=== PATIENT | female | born 1930 | race Caucasian/White ===

== ENCOUNTER → 2016-08-16 | Outpatient (CLI) | payer MEDICARE, OTHER, MEDICAID ==
--- NOTE | 2016-08-16 16:10 | CR ---
EXAMINATION: Right femur HISTORY: Fracture COMPARISON: 05/17/2016 TECHNIQUE: 2 views FINDINGS/IMPRESSION: Right intramedullary yakov is again noted traversing a nearly well-healed subtroc hanteric fracture. The remaining osseous structures and joint spaces appear preserved. Bone minerali zation appears mildly osteopenic. No knee joint effusion.
== END ==
LOC: MW.CHORTHO 08:05
PROVIDERS: ATTEND Orthopaedic Surgery
DX: S72.21XA Displaced subtrochanteric fracture of right femur, initial encounter for closed fracture (principal); S72.21XD Displaced subtrochanteric fracture of right femur, subsequent encounter for closed fracture with routine healing; Z98.890 Other specified postprocedural states
CPT/HCPCS: 73552-26-LT; 73552-RT; G0463

== ENCOUNTER 2018-05-14 13:51 | Emergency (ER) | payer MEDICARE, OTHER ==
[2018-05-14 14:31] VITALS: BP 188/80
--- NOTE | 2018-05-14 15:07 | CR ---
EXAMINATION: Portable chest radiograph. HISTORY: Fall. FINDINGS: The trachea is midline. The cardiomediastinal silhouette is within normal limits. Trace bibasilar atelectasis and/or infiltrate. Chronic interstitial prominence. The aorta is tortuous. Osseous structures appear osteopenic. IMPRESSION: 1. Minimal bibasilar atelectasis and/or infiltrate. 2. Chronic prominence.
--- NOTE | 2018-05-14 15:11 | CR ---
EXAMINATION: Right shoulder HISTORY: Pain COMPARISON: None TECHNIQUE: 3 views FINDINGS/IMPRESSION: Bone mineralization is osteopenic. Increased angulation of the humeral neck without a definite fracture, possibly secondary to an old injury. Mild acromioclavicular osteoarthritic changes. Possible nondisplaced right eighth rib fracture.
--- NOTE | 2018-05-14 15:35 | CT ---
EXAMINATION: CT cervical spine HISTORY: Fall COMPARISON: None TECHNIQUE: Axial CT imaging obtained of the cervical spine without contrast. Coronal and sagittal reconstructions obtained. FINDINGS: There is mild relative retrolisthesis of C1 on C2 with an old odontoid fracture. The dens is fused with the anterior arch of C1. There is minimal anterolisthesis of C3 on C4. There is generalized osteopenia. Mild osteophyte disc complexes and uncovertebral hypertrophy noted throughout the cervical spine. No definite acute osseous abnormality or fracture. There are moderate compression deformities within the upper thoracic spine most prominent at T3 and T4. Scarring is noted within the lung apices mild to moderate pulmonary emphysema. Carotid artery calcifications are also noted. IMPRESSION: 1. No acute osseous abnormality identified. 2. Old type II odontoid fracture. 3. Multilevel degenerative changes noted within the cervical spine. 4. Scarring within the lung apices with [id number] pulmonary emphysema. 5. Moderate compression deformities within the upper thoracic spine.
--- NOTE | 2018-05-14 15:59 | CT ---
EXAMINATION: Non contrast CT head. Coronal and sagittal reformats. HISTORY: Pain FINDINGS: No evidence of intra or extra axial hemorrhage, mass, midline shift, hydrocephalus or edema. There is moderate generalized atrophy. Moderate periventricular and subcortical white matter hypodensities also noted. Tiny old lacunar infarct within the right periventricular region. No hypoattenuation changes in the major vascular territories to suggest acute infarct. No abnormal intracranial calcifications are detected. No evidence of substantial vascular calcifications. Paranasal sinuses and mastoid air cells are well aerated without substantial findings. Pituitary fossa appears unremarkable. Orbits and globes are symmetric. Calvarium is intact. Osseous structures are osteopenic. IMPRESSION: 1. No acute intracranial findings. 2. Prominent generalized atrophy and small vessel ischemic changes.
--- NOTE | 2018-05-14 16:04 | EDM.PDOC ---
ED HPI GENERAL MEDICAL PROBLEM - General Chief Complaint: Upper Extremity Injury/Pain Stated Complaint: SHOULDER INJURY Time Seen by Provider: 05/14/18 16:02 Source of Information: Reports: Patient - History of Present Illness INITIAL COMMENTS - FREE TEXT/NARRATIVE: HISTORY AND PHYSICAL: History of present illness: []Patient resides at [facility] States she is have right shoulder pain over the last couple of weeks however she fell over her wheelchair today and has increasing shoulder pain as well as some pain on her side she denies head injury or loss of consciousness No fever nausea vomiting chills sweats Review of systems: As per history of present illness and below otherwise all systems reviewed and negative. Past medical history: As per history of present illness and as reviewed below otherwise noncontributory. Surgical history: As per history of present illness and as reviewed below otherwise noncontributory. Social history: No reported history of drug or alcohol abuse. Family history: As per history of present illness and as reviewed below otherwise noncontributory. Physical exam: HEENT: Atraumatic, normocephalic, pupils reactive, negative for conjunctival pallor or scleral icterus, mucous membranes moist, throat clear, neck supple, nontender, trachea midline. Lungs: Clear to auscultation, breath sounds equal bilaterally, chest nontender. Heart: S1S2, regular, negative for clicks, rubs, or JVD. Abdomen: Soft, nondistended, nontender. Negative for masses or hepatosplenomegaly. Negative for costovertebral tenderness. Pelvis: Stable nontender. Genitourinary: Deferred. Rectal: Deferred. Extremities: Atraumatic, negative for cords or calf pain. Neurovascular unremarkable. Neuro: Awake, alert, oriented. Cranial nerves II through XII unremarkable. Cerebellum unremarkable. Motor and sensory unremarkable throughout. Exam nonfocal. Diagnostics: [] right shoulder [address] no contrast L-spine no contrast Therapeutics: [] tramadol Impression: [] muscle spasm right shoulder girdle A throat fracture on the right nondisplaced closed Definitive disposition and diagnosis as appropriate pending reevaluation and review of above. Right Shoulder Pain Score (Numeric/FACES): 8 - Related Data Allergies Allergy/AdvReac Type Severity Reaction Status Date / Time No Known Allergies Allergy Verified 11/03/15 14:22 Home Meds: Home Meds Acetaminophen [Tylenol Extra Strength] 500 mg PO TID 05/14/18 [History] Acetaminophen/HYDROcodone [[place] 325-5 MG] 1 tab PO Q6H PRN 05/14/18 [History] Bisacodyl 10 mg RC DAILY PRN 05/14/18 [History] Calcitonin,[place],Synthetic [Calcitonin-[place]] 1 spray NASBOTH ASDIRECTED 05/14 [History] Calcium Carbonate/Vitamin D3 [Calcium 500-Vit D3 200 Caplet] 1 tab PO BID [History] Cholecalciferol (Vitamin D3) [Vitamin D3] 2,000 unit PO DAILY 05/14/18 [History] Docusate Sodium [Colace] 200 mg PO DAILY 05/14/18 [History] Loperamide HCl [Imodium A-D] 2 mg PO ASDIRECTED PRN 05/14/18 [History] Magnesium Hydroxide [Milk of Magnesia] 15 ml PO DAILY PRN 05/14/18 [History] Memantine [Namenda] 10 mg PO BID 05/14/18 [History] Multivitamin [Daily Multiple Vitamin] 1 each PO DAILY 05/14/18 [History] Omeprazole 20 mg PO DAILY 05/14/18 [History] Polyethylene Glycol 3350 [MiraLAX] 17 gm PO DAILY PRN 05/14/18 [History] guaiFENesin/Dextromethorphan [Tussin DM Clear] 10 ml PO Q4H PRN 05/14/18 [ History] Past Medical History 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: Reports: 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: Musculoskeletal History: Reports: Other (See Below) Other Musculoskeletal History: hx of neck and back fx's Psychiatric History: Reports: Dementia Immunologic History: Reports: None - Infectious Disease History Infectious Disease History: Reports: None Social & Family History - Family History Family Medical History: Unobtainable - Tobacco Use Smoking Status *Q: Never Smoker Second Hand Smoke Exposure: No - Caffeine Use Caffeine Use: Reports: Coffee - Recreational Drug Use Recreational Drug Use: No Review of Systems - Review of Systems Review Of Systems: See Below ED EXAM, GENERAL - Physical Exam Exam: See Below Course - Vital Signs Last Recorded V/S: Last Vital Signs Temp 97.6 F 05/14/18 14:27 Pulse 68 05/14/18 14:27 Resp 16 05/14/18 14:27 BP 188/80 H 05/14/18 14:27 Pulse Ox 95 05/14/18 14:27 Departure - Departure Time of Disposition: 16:03 Disposition: Home, Self-Care 01 Condition: Good Clinical Impression: Right shoulder injury, Muscle spasm, Rib fracture - Discharge Information Referrals: PCP,Unknown [Primary Care Provider] - Additional Instructions: The following information is given to patients seen in the emergency department who are being discharged to home. This information is to outline your options for follow-up care. We provide all patients seen in our emergency department with a follow-up referral. The need for follow-up, as well as the timing and circumstances, are variable depending upon the specifics of your emergency department visit. If you don't have a primary care physician on staff, we will provide you with a referral. We always advise you to contact your personal physician following an emergency department visit to inform them of the circumstance of the visit and for follow-up with them and/or the need for any referrals to a consulting specialist. The emergency department will also refer you to a specialist when appropriate. This referral assures that you have the opportunity for follow-up care with a specialist. All of these measure are taken in an effort to provide you with optimal care, which includes your follow-up. Under all circumstances we always encourage you to contact your private physician who remains a resource for coordinating your care. When calling for follow-up care, please make the office aware that this follow-up is from your recent emergency room visit. If for any reason you are refused follow-up, please contact the [facility] emergency department at and asked to speak to the emergency department charge nurse.
== END 2018-05-14 16:13 | disposition home or self-care (01) ==
LOC: MW.ED 13:51
DX: S22.31XA Fracture of one rib, right side, initial encounter for closed fracture (principal); S49.91XA Unspecified injury of right shoulder and upper arm, initial encounter; M62.838 Other muscle spasm; Z79.899 Other long term (current) drug therapy; W05.0XXA Fall from non-moving wheelchair, initial encounter
CPT/HCPCS: 70450; 70450-26; 71045; 71045-26; 72125; 72125-26; 73030-26-RT; 73030-RT; 99284; 99284-25

== ENCOUNTER 2018-10-09 11:49 | Emergency (ER) | payer MEDICARE, OTHER ==
--- NOTE | 2018-10-09 12:31 | EDM.PDOC ---
<Natalia Ventura - Last Filed: 10/09/18 12:20> ED HPI GENERAL MEDICAL PROBLEM - General Chief Complaint: Fever Stated Complaint: FEVER Time Seen by Provider: 10/09/18 11:56 - History of Present Illness INITIAL COMMENTS - FREE TEXT/NARRATIVE: History of present illness: 87-year-old female presents from the [facility] today for complaints of fever. She was seen on round either physician earlier this week due to respiratory cough and congestion. This today she's developed a fever of 103 201 and 99F after being provided 1 g of acetaminophen. She did experience emesis this weekend per nursing staff. She is pleasant, however a bit confused as to why she is here. She indicates she wasn't allowed to put her makeup on drink coffee and expects to go home, which in her reference is her actual home and not the half-way. Staff member is present and confirms the same. Presently denies any ill feelings, however is constantly clearing her throat and when asked if this is unusual states that her nerves from being in the hospital. She does have oxygen on at this time which is not routine in her daily care at the half-way She denies shortness of breath, nausea,vomiting, diarrhea, abdominal pain, headache, chills, or cough. However, patient is a poor historian. Review of systems: As per history of present illness and below otherwise all systems reviewed and negative. Past medical history: As per history of present illness and as reviewed below otherwise noncontributory. Surgical history: As per history of present illness and as reviewed below otherwise noncontributory. Social history: No reported history of drug or alcohol abuse. Family history: As per history of present illness and as reviewed below otherwise noncontributory. Physical exam: General: Well-developed well-nourished 87-year-old female in no acute distress. HEENT: Atraumatic, normocephalic, pupils reactive, negative for conjunctival pallor or scleral icterus, mucous membranes moist, throat clear, neck supple, nontender, trachea midline. Lungs: Diminished to the bilateral bases with rales that clear with coughing to auscultation, breath sounds equal bilaterally, chest nontender. Heart: S1S2, regular, negative for clicks, rubs, or JVD. Abdomen: Soft, nondistended, nontender. Negative for masses or hepatosplenomegaly. Negative for costovertebral tenderness. Pelvis: Stable nontender. Genitourinary: Deferred. Rectal: Deferred. Extremities: Atraumatic, negative for cords or calf pain. Neurovascular unremarkable. Skin: Intact, warm, dry. No lesions, rashes are noted. Neuro: Awake, alert, oriented. Cranial nerves II through XII unremarkable. Cerebellum unremarkable. Motor and sensory unremarkable throughout. Exam nonfocal. Notes: Patient is comfortable denies chills and requests to have a couple coffee in order to provide urine sample and same is provided. Diagnostics: CBC, CMP, UA, chest x-ray Therapeutics: Impression: Plan: Definitive disposition and diagnosis as appropriate pending reevaluation and review of above. - Related Data Allergies Allergy/AdvReac Type Severity Reaction Status Date / Time No Known Allergies Allergy Verified 10/09/18 11:55 Home Meds: Home Meds Acetaminophen [Tylenol Extra Strength] 500 mg PO TID 05/14/18 [History] Acetaminophen/HYDROcodone [[place] 325-5 MG] 1 tab PO Q6H PRN 05/14/18 [History] Bisacodyl 10 mg RC DAILY PRN 05/14/18 [History] Calcium Carbonate/Vitamin D3 [Calcium 500-Vit D3 200 Caplet] 1 tab PO BID [History] Cholecalciferol (Vitamin D3) [Vitamin D3] 2,000 unit PO DAILY 05/14/18 [History] Docusate Sodium [Colace] 200 mg PO DAILY 05/14/18 [History] Loperamide HCl [Imodium A-D] 2 mg PO ASDIRECTED PRN 05/14/18 [History] Magnesium Hydroxide [Milk of Magnesia] 15 ml PO DAILY PRN 05/14/18 [History] Memantine [Namenda] 10 mg PO BID 05/14/18 [History] Multivitamin [Daily Multiple Vitamin] 1 each PO DAILY 05/14/18 [History] Omeprazole 20 mg PO DAILY 05/14/18 [History] Polyethylene Glycol 3350 [MiraLAX] 17 gm PO DAILY PRN 05/14/18 [History] guaiFENesin/Dextromethorphan [Tussin DM Clear] 10 ml PO Q4H PRN 05/14/18 [ History] Albuterol/Ipratropium [DuoNeb 3.0-0.5 MG/3 ML] 3 ml .XX TID #10 neb 10/09/18 [Rx ] Alendronate Sodium [Fosamax] 70 mg PO TU@08 10/09/18 [History] Azithromycin [Zithromax] 250 mg PO DAILY #4 tab 10/09/18 [Rx] Ciprofloxacin HCl [Cipro] 500 mg PO BID #13 tablet 10/09/18 [Rx] Past Medical History Cardiovascular History: Reports: CAD, High Cholesterol, Hypertension 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: Reports: Asthma Gastrointestinal History: Reports: GERD Genitourinary History: Reports: Urinary Incontinence 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: Musculoskeletal History: Reports: Other (See Below) Other Musculoskeletal History: hx of neck and back fx's, Pain R hip, Polymyagia heumatica, difficuty walking, Repeated Falls, Difficulty walking, weakness Psychiatric History: Reports: Alzheimers Disease, Dementia Immunologic History: Reports: None - Infectious Disease History Infectious Disease History: Reports: Chicken Pox - Past Surgical History HEENT Surgical History: Reports: Adenoidectomy, Tonsillectomy Social & Family History - Family History Family Medical History: Unobtainable - Tobacco Use Smoking Status *Q: Never Smoker - Caffeine Use Caffeine Use: Reports: Coffee - Recreational Drug Use Recreational Drug Use: No Course - Vital Signs Last Recorded V/S: Last Vital Signs Temp 36.9 C 10/09/18 14:24 Pulse 105 H 10/09/18 14:24 Resp 24 H 10/09/18 14:24 BP 166/78 H 10/09/18 14:24 Pulse Ox 93 L 10/09/18 14:24 - Orders/Labs/Meds Orders: Active Orders 24 hr Category Date Time Status Oxygen Therapy Adult [Oxygen Therapy, ED] [RC] Care 10/09/18 12:02 Active ASDIRECTED RT Aerosol Therapy [RC] ASDIRECTED Care 10/09/18 13:53 Active Ciprofloxacin in D5W [Cipro in D5W 400 MG/200 ML] 400 Med 10/09/18 14:00 Ordered mg Premix Bag 1 bag IV Q12H Medication Orders Ciprofloxacin/Dextrose 400 mg/ (Premix) 200 mls @ 200 mls/hr IV Q12H MONIKA Last Admin: 10/09/18 14:10 Dose: 200 mls/hr Labs: Laboratory Tests 10/09/18 10/09/18 10/09/18 Range/Units 12:27 12:27 12:27 WBC 10.34 (4.0-11.0) K/uL RBC 3.90 L (4.30-5.90) M/uL Hgb 11.8 L (12.0-16.0) g/dL Hct 34.5 L (36.0-46.0) % MCV 88.5 (80.0-98.0) fL MCH 30.3 (27.0-32.0) pg MCHC 34.2 (31.0-37.0) g/dL RDW Std Deviation 42.5 (28.0-62.0) fl RDW Coeff of Mode 13 (11.0-15.0) % Plt Count 242 (150-400) K/uL MPV 9.20 (7.40-12.00) fL Neut % (Auto) 77.8 (48.0-80.0) % Lymph % (Auto) 10.3 L (16.0-40.0) % [place] % (Auto) 11.4 (0.0-15.0) % Eos % (Auto) 0.2 (0.0-7.0) % Baso % (Auto) 0.3 (0.0-1.5) % Neut # (Auto) 8.1 H (1.4-5.7) K/uL Lymph # (Auto) 1.1 (0.6-2.4) K/uL [place] # (Auto) 1.2 H (0.0-0.8) K/uL Eos # (Auto) 0.0 (0.0-0.7) K/uL Baso # (Auto) 0.0 (0.0-0.1) K/uL Nucleated RBC % 0.0 /100WBC Nucleated RBCs # 0 K/uL Lactate 0.8 (0.20-2.00) mmol/L Sodium 132 L (136-145) mmol/L Potassium 3.7 (3.5-5.1) mmol/L Chloride 98 (98-107) mmol/L Carbon Dioxide 21.5 (21.0-32.0) mmol/L BUN 17 (7.0-18.0) mg/dL Creatinine 0.9 (0.6-1.0) mg/dL Est Cr Clr Drug Dosing 31.04 mL/min Estimated GFR (MDRD) 59.1 ml/min Glucose 98 (74-106) mg/dL Calcium 8.1 L (8.5-10.1) mg/dL Total Bilirubin 1.0 (0.2-1.0) mg/dL AST 40 H (15-37) IU/L ALT 30 (14-63) IU/L Alkaline Phosphatase 98 (46-116) U/L Total Protein 6.5 (6.4-8.2) g/dL Albumin 3.1 L (3.4-5.0) g/dL Globulin 3.4 (2.6-4.0) g/dL Albumin/Globulin Ratio 0.9 (0.9-1.6) Urine Color Urine Appearance Urine pH (5.0-8.0) Ur Specific [place] (1.001-1.035) Urine Protein (NEGATIVE) mg/dL Urine Glucose (UA) (NEGATIVE) mg/dL Urine Ketones (NEGATIVE) mg/dL Urine Occult Blood (NEGATIVE) Urine Nitrite (NEGATIVE) Urine Bilirubin (NEGATIVE) Urine Urobilinogen (<2.0) EU/dL Ur Leukocyte Esterase (NEGATIVE) Urine RBC (0-2/HPF) Urine WBC (0-5/HPF) Ur Epithelial Cells (NONE-FEW) Urine Bacteria (NEGATIVE) Urine Mucus (NONE-MOD) 10/09/18 Range/Units 13:15 WBC (4.0-11.0) K/uL RBC (4.30-5.90) M/uL Hgb (12.0-16.0) g/dL Hct (36.0-46.0) % MCV (80.0-98.0) fL MCH (27.0-32.0) pg MCHC (31.0-37.0) g/dL RDW Std Deviation (28.0-62.0) fl RDW Coeff of Mode (11.0-15.0) % Plt Count (150-400) K/uL MPV (7.40-12.00) fL Neut % (Auto) (48.0-80.0) % Lymph % (Auto) (16.0-40.0) % [place] % (Auto) (0.0-15.0) % Eos % (Auto) (0.0-7.0) % Baso % (Auto) (0.0-1.5) % Neut # (Auto) (1.4-5.7) K/uL Lymph # (Auto) (0.6-2.4) K/uL [place] # (Auto) (0.0-0.8) K/uL Eos # (Auto) (0.0-0.7) K/uL Baso # (Auto) (0.0-0.1) K/uL Nucleated RBC % /100WBC Nucleated RBCs # K/uL Lactate (0.20-2.00) mmol/L Sodium (136-145) mmol/L Potassium (3.5-5.1) mmol/L Chloride (98-107) mmol/L Carbon Dioxide (21.0-32.0) mmol/L BUN (7.0-18.0) mg/dL Creatinine (0.6-1.0) mg/dL Est Cr Clr Drug Dosing mL/min Estimated GFR (MDRD) ml/min Glucose (74-106) mg/dL Calcium (8.5-10.1) mg/dL Total Bilirubin (0.2-1.0) mg/dL AST (15-37) IU/L ALT (14-63) IU/L Alkaline Phosphatase (46-116) U/L Total Protein (6.4-8.2) g/dL Albumin (3.4-5.0) g/dL Globulin (2.6-4.0) g/dL Albumin/Globulin Ratio (0.9-1.6) Urine Color YELLOW Urine Appearance SLT CLOUDY Urine pH 6.0 (5.0-8.0) Ur Specific [place] 1.020 (1.001-1.035) Urine Protein 30 H (NEGATIVE) mg/dL Urine Glucose (UA) NEGATIVE (NEGATIVE) mg/dL Urine Ketones 15 H (NEGATIVE) mg/dL Urine Occult Blood SMALL H (NEGATIVE) Urine Nitrite POSITIVE H (NEGATIVE) Urine Bilirubin NEGATIVE (NEGATIVE) Urine Urobilinogen 1.0 (<2.0) EU/dL Ur Leukocyte Esterase SMALL H (NEGATIVE) Urine RBC 0-2 (0-2/HPF) Urine WBC 15-20 (0-5/HPF) Ur Epithelial Cells FEW (NONE-FEW) Urine Bacteria 3+ H (NEGATIVE) Urine Mucus LIGHT (NONE-MOD) Meds: Medications Generic Name Dose Route Start Last Admin Trade Name Freq PRN Reason Stop Dose Admin Ciprofloxacin/Dextrose 400 mg/ 200 mls @ 200 mls/hr 10/09/18 14:00 10/09/18 14:10 Premix IV 200 mls/hr Q12H MONIKA Administration Discontinued Medications Generic Name Dose Route Start Last Admin Trade Name Freq PRN Reason Stop Dose Admin Albuterol/Ipratropium 3 ml 10/09/18 13:53 10/09/18 13:57 Duoneb 3.0-0.5 Mg/3 Ml NEB 10/09/18 13:54 3 ml ONETIME ONE Administration Albuterol/Ipratropium Confirm 10/09/18 13:55 10/09/18 14:04 Duoneb 3.0-0.5 Mg/3 Ml Administered 10/09/18 13:56 Not Given Dose 3 ml .ROUTE .STK-MED ONE Azithromycin 500 mg 10/09/18 13:51 10/09/18 14:10 Zithromax PO 10/09/18 13:52 500 mg Q24H ONE Administration Ceftriaxone Sodium/Dextrose 1 50 mls @ 100 mls/hr 10/09/18 13:41 10/09/18 13: 52 gm/ Premix IV 10/09/18 14:10 Not Given ONETIME ONE Departure - Departure Disposition: DC/Tfer to [facility] Clinical Impression: Urinary tract infection Qualifiers: Urinary tract infection type: site unspecified Hematuria presence: without hematuria Qualified Code(s): N39.0 - Urinary tract infection, site not specified Pneumonia Qualifiers: Pneumonia type: due to unspecified organism - Discharge Information Prescriptions: Albuterol/Ipratropium [DuoNeb 3.0-0.5 MG/3 ML] 3 ml .XX TID #10 neb Azithromycin [Zithromax] 250 mg PO DAILY #4 tab Ciprofloxacin HCl [Cipro] 500 mg PO BID #13 tablet Referrals: PCP,Unknown [Primary Care Provider] - [facility] [Outside] Forms: ED Department Discharge Additional Instructions: The following information is given to patients seen in the emergency department who are being discharged to home. This information is to outline your options for follow-up care. We provide all patients seen in our emergency department with a follow-up referral. The need for follow-up, as well as the timing and circumstances, are variable depending upon the specifics of your emergency department visit. If you don't have a primary care physician on staff, we will provide you with a referral. We always advise you to contact your personal physician following an emergency department visit to inform them of the circumstance of the visit and for follow-up with them and/or the need for any referrals to a consulting specialist. The emergency department will also refer you to a specialist when appropriate. This referral assures that you have the opportunity for follow-up care with a specialist. All of these measure are taken in an effort to provide you with optimal care, which includes your follow-up. Under all circumstances we always encourage you to contact your private physician who remains a resource for coordinating your care. When calling for follow-up care, please make the office aware that this follow-up is from your recent emergency room visit. If for any reason you are refused follow-up, please contact the [facility] Emergency Department at and asked to speak to the emergency department charge nurse. 1. Take your azithromycin once daily for the next 4 days starting tomorrow. You had her first dose while in the emergency room. 2. Take your Cipro twice daily starting tonight. Again you had her first dose in the emergency room. 3. Breathing treatments 3 times daily for the next 3-5 days 4. Tylenol 1 g 3 times a day as needed for fever or discomfort 5. Follow-up with your primary provider for worsening or not improving symptoms 6. Assure large amounts of clear oral fluids. - My Orders Last 24 Hours: My Active Orders 10/09/18 12:02 Oxygen Therapy Adult [Oxygen Therapy, ED] [RC] ASDIRECTED 10/09/18 13:53 RT Aerosol Therapy [RC] ASDIRECTED 10/09/18 14:00 Ciprofloxacin in D5W [Cipro in D5W 400 MG/200 ML] 400 mg Premix Bag 1 bag IV Q12H - Assessment/Plan Last 24 Hours: My Active Orders 10/09/18 12:02 Oxygen Therapy Adult [Oxygen Therapy, ED] [RC] ASDIRECTED 10/09/18 13:53 RT Aerosol Therapy [RC] ASDIRECTED 10/09/18 14:00 Ciprofloxacin in D5W [Cipro in D5W 400 MG/200 ML] 400 mg Premix Bag 1 bag IV Q12H <Nina Becerril R - Last Filed: 10/09/18 14:56> ED ROS GENERAL - Review of Systems Review Of Systems: ROS reveals no pertinent complaints other than HPI. ED EXAM, GENERAL - Physical Exam Exam: See Below Departure - Departure Time of Disposition: 14:51 Condition: Good
--- NOTE | 2018-10-09 13:30 | CR ---
EXAMINATION: Two-view chest (AP and Lateral views). HISTORY: Fever. Comparison: 05/14/2018. FINDINGS: The trachea is mildly deviated to the right. The cardiomediastinal silhouette is stable. Mildly increased infiltrate within the left lung base. Chronic interstitial prominence is again noted. Stable scarring within the right lung base. Trace pleural effusions are not excluded. Osseous structures appear osteopenic. IMPRESSION: 1. Mildly increased infiltrate within the left lung base, and developing pneumonia is not excluded. 2. Chronic interstitial prominence and scarring.
[2018-10-09] MEDS ORDERED: cefTRIAXone 1 GM in Premix Bag 1 BAG IV ONE (13:41)
[2018-10-09] MEDS ORDERED: Azithromycin 250 MG Tab PO ONE (13:51)
[2018-10-09] MEDS ORDERED: Albuterol/Ipratropium 3.0-0.5 MG/3 ML Neb Soln NEB ONE (13:53)
[2018-10-09] MEDS ORDERED: Albuterol/Ipratropium 3.0-0.5 MG/3 ML Neb Soln ONE (13:55)
[2018-10-09] MEDS ORDERED: Ciprofloxacin in D5W 400 MG in Premix Bag 1 BAG IV SCH ×2 (14:00)
[2018-10-09 16:30] VITALS: BP 159/81
== END 2018-10-09 16:30 ==
LOC: MW.ED 11:49
DX: N39.0 Urinary tract infection, site not specified (principal); J18.9 Pneumonia, unspecified organism; I10 Essential (primary) hypertension; E78.00 Pure hypercholesterolemia, unspecified; I25.10 Atherosclerotic heart disease of native coronary artery without angina pectoris; K21.9 Gastro-esophageal reflux disease without esophagitis; G30.9 Alzheimer's disease, unspecified; F02.80 Dementia in other diseases classified elsewhere, unspecified severity, without behavioral disturbance, psychotic disturbance, mood disturbance, and anxiety; Z79.899 Other long term (current) drug therapy
CPT/HCPCS: 36415; 71046; 80053; 81001; 83605; 85025; 94640; 96365; 99285; A4217; A9270; J0744; 99283; J7620-GY

== ENCOUNTER 2019-05-07 07:39 | Emergency (ER) | payer MEDICARE, OTHER ==
--- NOTE | 2019-05-07 07:50 | EDM.PDOC ---
ED HPI GENERAL MEDICAL PROBLEM - General Stated Complaint: ABDOMINAL PAIN Time Seen by Provider: 05/07/19 07:50 Source of Information: Reports: Patient, EMS, Old Records History Limitations: Reports: No Limitations - History of Present Illness INITIAL COMMENTS - FREE TEXT/NARRATIVE: Patient is a 88-year-old female who is coming from group home where she had complained of chest pain earlier this morning. On arrival to the emergency department patient is only complaining of back pain. To the nursing staff she was complaining of some epigastric pain. Patient denies being nauseous or any vomiting denies any bloody or tarry stools denies any fever or shaking chills. Patient has no dysuria or hematuria. She denies having any cough or being short of breath. She is a very poor historian secondary to her underlying dementia. She denies any strokelike symptoms. Onset: Unknown/Unsure Location: Reports: Chest, Back Quality: Reports: Ache Severity: Moderate Improves with: Reports: None Worsens with: Reports: Movement Associated Symptoms: Reports: No Other Symptoms Epigastric Pain Score (Numeric/FACES): 10 - Related Data Allergies Allergy/AdvReac Type Severity Reaction Status Date / Time No Known Allergies Allergy Verified 05/07/19 08:02 Home Meds: Home Meds Acetaminophen [Tylenol Extra Strength] 500 mg PO TID 05/14/18 [History] Acetaminophen/HYDROcodone [[place] 325-5 MG] 1 tab PO Q6H PRN 05/14/18 [History] Bisacodyl 10 mg RC DAILY PRN 05/14/18 [History] Calcium Carbonate/Vitamin D3 [Calcium 500-Vit D3 200 Caplet] 1 tab PO BID [History] Cholecalciferol (Vitamin D3) [Vitamin D3] 2,000 unit PO DAILY 05/14/18 [History] Docusate Sodium [Colace] 200 mg PO DAILY 05/14/18 [History] Loperamide HCl [Imodium A-D] 2 mg PO ASDIRECTED PRN 05/14/18 [History] Magnesium Hydroxide [Milk of Magnesia] 15 ml PO DAILY PRN 05/14/18 [History] Memantine [Namenda] 10 mg PO BID 05/14/18 [History] Multivitamin [Daily Multiple Vitamin] 1 each PO DAILY 05/14/18 [History] Omeprazole 20 mg PO DAILY 05/14/18 [History] guaiFENesin/Dextromethorphan [Tussin DM Clear] 10 ml PO Q4H PRN 05/14/18 [ History] polyethylene glycoL 3350 [MiraLAX] 17 gm PO DAILY PRN 05/14/18 [History] Alendronate Sodium [Fosamax] 70 mg PO TU 10/09/18 [History] Past Medical History Cardiovascular History: Reports: CAD, High Cholesterol, Hypertension 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: Reports: Asthma Gastrointestinal History: Reports: GERD Genitourinary History: Reports: Urinary Incontinence 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 ED EXAM, GENERAL - Physical Exam Exam: See Below Free Text/Narrative:: Exam: See Below Exam Limited By: No Limitations except for moderate dementia. Head: Atraumatic Neck: Normal Inspection. No: Carotid Bruit, Lymphadenopathy (R) Respiratory/Chest: No Respiratory Distress, Lungs Clear, Normal Breath Sounds, No Accessory Muscle Use. No: Chest Non-Tender Cardiovascular: Normal Peripheral Pulses, Regular Rate, Rhythm, No Edema, No JVD GI/Abdominal: Normal Bowel Sounds, Tender. No: Non-Tender, Splenomegaly Back Exam: Normal Inspection. No: CVA Tenderness (R)(L), patient does have mid back pain and spasm which reproduces her symptoms on my examination which is paraspinal. There is no rash or hematoma or ecchymosis in the area. Extremities: Normal Inspection. No: No Pedal Edema Neurological: Alert, Oriented, Normal Cognition Psychiatric: Normal Affect Skin Exam: Warm Lymphatic: No Adenopathy Course - Vital Signs Text/Narrative:: Patient's EKG is unremarkable. Her lab work including repeat troponin were negative. Patient was given Austin for her bilateral anterior chest wall pain which is made her more comfortable and is currently eating her lunch. Chest x- ray shows no change from her previous fibrosis. Discharging her back to her group home at this time. Does have Austin prescribed your available at the group home. Last Recorded V/S: Last Vital Signs Temp 37.0 C 05/07/19 07:40 Pulse 92 05/07/19 10:14 Resp 17 05/07/19 10:14 BP 184/93 H 05/07/19 10:14 Pulse Ox 96 05/07/19 10:14 - Orders/Labs/Meds Orders: Active Orders 24 hr Category Date Time Status EKG Documentation Completion [RC] STAT Care 05/07/19 08:02 Active Sodium Chloride 0.9% [Saline Flush] Med 05/07/19 08:02 Active 10 ml FLUSH ASDIRECTED PRN Sodium Chloride 0.9% [Saline Flush] Med 05/07/19 08:02 Active 2.5 ml FLUSH ASDIRECTED PRN Saline Lock Insert [OM.PC] Stat Oth 05/07/19 08:02 Ordered Medication Orders Sodium Chloride (Saline Flush) 10 ml FLUSH ASDIRECTED PRN PRN Reason: Keep Vein Open Sodium Chloride (Saline Flush) 2.5 ml FLUSH ASDIRECTED PRN PRN Reason: Keep Vein Open Labs: Laboratory Tests 05/07/19 05/07/19 05/07/19 Range/Units 07:43 07:43 09:42 WBC 12.36 H (4.0-11.0) K/uL RBC 3.99 L (4.30-5.90) M/uL Hgb 12.3 (12.0-16.0) g/dL Hct 36.4 (36.0-46.0) % MCV 91.2 (80.0-98.0) fL MCH 30.8 (27.0-32.0) pg MCHC 33.8 (31.0-37.0) g/dL RDW Std Deviation 44.5 (28.0-62.0) fl RDW Coeff of Mode 13 (11.0-15.0) % Plt Count 262 (150-400) K/uL MPV 8.90 (7.40-12.00) fL Neut % (Auto) 82.4 H (48.0-80.0) % Lymph % (Auto) 8.1 L (16.0-40.0) % Rooks % (Auto) 8.8 (0.0-15.0) % Eos % (Auto) 0.5 (0.0-7.0) % Baso % (Auto) 0.2 (0.0-1.5) % Neut # (Auto) 10.2 H (1.4-5.7) K/uL Lymph # (Auto) 1.0 (0.6-2.4) K/uL Rooks # (Auto) 1.1 H (0.0-0.8) K/uL Eos # (Auto) 0.1 (0.0-0.7) K/uL Baso # (Auto) 0.0 (0.0-0.1) K/uL Nucleated RBC % 0.0 /100WBC Nucleated RBCs # 0 K/uL Sodium 137 (136-145) mmol/L Potassium 4.0 (3.5-5.1) mmol/L Chloride 99 (98-107) mmol/L Carbon Dioxide 27.7 (21.0-32.0) mmol/L BUN 14 (7.0-18.0) mg/dL Creatinine 0.9 (0.6-1.0) mg/dL Est Cr Clr Drug Dosing 30.44 mL/min Estimated GFR (MDRD) 59.0 ml/min Glucose 116 H (74-106) mg/dL Calcium 9.5 (8.5-10.1) mg/dL Total Bilirubin 0.8 (0.2-1.0) mg/dL AST 25 (15-37) IU/L ALT 28 (14-63) IU/L Alkaline Phosphatase 78 (46-116) U/L Troponin I < 0.050 (0.000-0.056) ng/mL Total Protein 7.8 (6.4-8.2) g/dL Albumin 3.9 (3.4-5.0) g/dL Globulin 3.9 (2.6-4.0) g/dL Albumin/Globulin Ratio 1.0 (0.9-1.6) Lipase 130 (73-393) U/L Urine Color YELLOW Urine Appearance CLEAR Urine pH 6.0 (5.0-8.0) Ur Specific [place] 1.010 (1.001-1.035) Urine Protein NEGATIVE (NEGATIVE) mg/dL Urine Glucose (UA) NEGATIVE (NEGATIVE) mg/dL Urine Ketones 15 H (NEGATIVE) mg/dL Urine Occult Blood TRACE-INTACT H (NEGATIVE) Urine Nitrite NEGATIVE (NEGATIVE) Urine Bilirubin NEGATIVE (NEGATIVE) Urine Urobilinogen 0.2 (<2.0) EU/dL Ur Leukocyte Esterase NEGATIVE (NEGATIVE) Urine RBC 0-2 (0-2/HPF) Urine WBC 0-1 (0-5/HPF) Ur Epithelial Cells FEW (NONE-FEW) Urine Bacteria FEW (NEGATIVE) 05/07/19 Range/Units 11:05 WBC (4.0-11.0) K/uL RBC (4.30-5.90) M/uL Hgb (12.0-16.0) g/dL Hct (36.0-46.0) % MCV (80.0-98.0) fL MCH (27.0-32.0) pg MCHC (31.0-37.0) g/dL RDW Std Deviation (28.0-62.0) fl RDW Coeff of Mode (11.0-15.0) % Plt Count (150-400) K/uL MPV (7.40-12.00) fL Neut % (Auto) (48.0-80.0) % Lymph % (Auto) (16.0-40.0) % Rooks % (Auto) (0.0-15.0) % Eos % (Auto) (0.0-7.0) % Baso % (Auto) (0.0-1.5) % Neut # (Auto) (1.4-5.7) K/uL Lymph # (Auto) (0.6-2.4) K/uL Rooks # (Auto) (0.0-0.8) K/uL Eos # (Auto) (0.0-0.7) K/uL Baso # (Auto) (0.0-0.1) K/uL Nucleated RBC % /100WBC Nucleated RBCs # K/uL Sodium (136-145) mmol/L Potassium (3.5-5.1) mmol/L Chloride (98-107) mmol/L Carbon Dioxide (21.0-32.0) mmol/L BUN (7.0-18.0) mg/dL Creatinine (0.6-1.0) mg/dL Est Cr Clr Drug Dosing mL/min Estimated GFR (MDRD) ml/min Glucose (74-106) mg/dL Calcium (8.5-10.1) mg/dL Total Bilirubin (0.2-1.0) mg/dL AST (15-37) IU/L ALT (14-63) IU/L Alkaline Phosphatase (46-116) U/L Troponin I < 0.050 (0.000-0.056) ng/mL Total Protein (6.4-8.2) g/dL Albumin (3.4-5.0) g/dL Globulin (2.6-4.0) g/dL Albumin/Globulin Ratio (0.9-1.6) Lipase (73-393) U/L Urine Color Urine Appearance Urine pH (5.0-8.0) Ur Specific [place] (1.001-1.035) Urine Protein (NEGATIVE) mg/dL Urine Glucose (UA) (NEGATIVE) mg/dL Urine Ketones (NEGATIVE) mg/dL Urine Occult Blood (NEGATIVE) Urine Nitrite (NEGATIVE) Urine Bilirubin (NEGATIVE) Urine Urobilinogen (<2.0) EU/dL Ur Leukocyte Esterase (NEGATIVE) Urine RBC (0-2/HPF) Urine WBC (0-5/HPF) Ur Epithelial Cells (NONE-FEW) Urine Bacteria (NEGATIVE) Meds: Medications Generic Name Dose Route Start Last Admin Trade Name Freq PRN Reason Stop Dose Admin Sodium Chloride 10 ml 05/07/19 08:02 Saline Flush FLUSH ASDIRECTED PRN Keep Vein Open Sodium Chloride 2.5 ml 05/07/19 08:02 Saline Flush FLUSH ASDIRECTED PRN Keep Vein Open Discontinued Medications Generic Name Dose Route Start Last Admin Trade Name Freq PRN Reason Stop Dose Admin Hydrocodone Bitart/Acetaminophen 1 tab 05/07/19 10:32 05/07/19 10:46 [place] 325-5 Mg PO 05/07/19 10:33 1 tab ONETIME ONE Administration Lidocaine 700 mg 05/07/19 08:23 05/07/19 08:30 Lidoderm 5% TOP 05/07/19 08:24 700 mg ONETIME ONE Administration Departure - Departure Time of Disposition: 12:35 Disposition: Home, Self-Care 01 Condition: Good Clinical Impression: Atypical chest pain, Chronic back pain Instructions: Nonspecific Chest Pain, [id number], Chronic Back Pain, Easy-to- Read Referrals: PCP,Sabine [Primary Care Provider] - Additional Instructions: Follow-up with PCP this week if not improving. Return to ER symptoms are worse. Use pain medication as needed. Care Plan Goals: The following information is given to patients seen in the emergency department who are being discharged to home. This information is to outline your options for follow-up care. We provide all patients seen in our emergency department with a follow-up referral. The need for follow-up, as well as the timing and circumstances, are variable depending upon the specifics of your emergency department visit. If you don't have a primary care physician on staff, we will provide you with a referral. We always advise you to contact your personal physician following an emergency department visit to inform them of the circumstance of the visit and for follow-up with them and/or the need for any referrals to a consulting specialist. The emergency department will also refer you to a specialist when appropriate. This referral assures that you have the opportunity for follow-up care with a specialist. All of these measure are taken in an effort to provide you with optimal care, which includes your follow-up. Under all circumstances we always encourage you to contact your private physician who remains a resource for coordinating your care. When calling for follow-up care, please make the office aware that this follow-up is from your recent emergency room visit. If for any reason you are refused follow-up, please contact the [facility] Emergency Department at and asked to speak to the emergency department charge nurse. Sepsis Event Note - Focused Exam Vital Signs: Vital Signs Temp Pulse Resp BP Pulse Ox 05/07/19 10:14 92 17 184/93 H 96 05/07/19 09:24 76 17 148/72 H 98 05/07/19 08:54 76 16 138/80 98 05/07/19 08:24 83 17 146/76 H 98 05/07/19 07:54 94 177/83 H 96 05/07/19 07:40 37.0 C 96 16 178/94 H 90 L Date Exam was Performed: 05/07/19 Time Exam was Performed: 12:32 - My Orders Last 24 Hours: My Active Orders 05/07/19 08:02 EKG Documentation Completion [RC] STAT Sodium Chloride 0.9% [Saline Flush] 10 ml FLUSH ASDIRECTED PRN Sodium Chloride 0.9% [Saline Flush] 2.5 ml FLUSH ASDIRECTED PRN Saline Lock Insert [OM.PC] Stat - Assessment/Plan Last 24 Hours: My Active Orders 05/07/19 08:02 EKG Documentation Completion [RC] STAT Sodium Chloride 0.9% [Saline Flush] 10 ml FLUSH ASDIRECTED PRN Sodium Chloride 0.9% [Saline Flush] 2.5 ml FLUSH ASDIRECTED PRN Saline Lock Insert [OM.PC] Stat
[2019-05-07] MEDS ORDERED: Sodium Chloride 0.9% 10 ML Syringe FLUSH PRN (08:02)
[2019-05-07] MEDS ORDERED: Sodium Chloride 0.9% 2.5 ML Syringe FLUSH PRN (08:02)
[2019-05-07] MEDS ORDERED: Lidocaine 5% 700 MG Patch TOP ONE (08:23)
[2019-05-07 08:26] LABS: BLOOD UREA NITROGEN,BUN 14 mg/dL (7.0-18.0); CARBON DIOXIDE,CO2 27.7 mmol/L (21.0-32.0); CHLORIDE,CL 99 mmol/L (98-107); GLUCOSE RANDOM 116 mg/dL (74-106); LIPASE 130 U/L (73-393); SODIUM,NA 137 mmol/L (136-145)
--- NOTE | 2019-05-07 09:02 | CR ---
Chest: AP view of the chest was obtained. Comparison: Prior chest x-ray of 10/09/18. Interstitial fibrosis is seen which is felt to be stable. No definite acute parenchymal change is seen. Heart size is normal. Tortuous thoracic aorta is present. Bony structures are osteopenic. Minimal scoliosis is also noted within the spine. Impression: 1. Stable interstitial fibrosis. Other findings as noted above are also stable. 2. Nothing acute is seen. Diagnostic code #2 This report was dictated in [place] Standard Time
[2019-05-07] MEDS ORDERED: Acetaminophen/HYDROcodone 325-5 MG Tab PO ONE ×2 (10:32→13:15)
[2019-05-07 13:19] VITALS: BP 138/69; PULSE 88
== END 2019-05-07 13:37 | disposition home or self-care (01) ==
LOC: MW.ED 07:39
DX: R07.89 Other chest pain (principal); M54.6 Pain in thoracic spine; G89.29 Other chronic pain; I10 Essential (primary) hypertension; I25.10 Atherosclerotic heart disease of native coronary artery without angina pectoris; E78.00 Pure hypercholesterolemia, unspecified; J45.909 Unspecified asthma, uncomplicated; K21.9 Gastro-esophageal reflux disease without esophagitis; Z79.899 Other long term (current) drug therapy
CPT/HCPCS: 36415; 71045; 80053; 81001; 83690; 84484; 85025; 93005; 99285; A9270

== ENCOUNTER 2019-09-15 09:03 | Emergency (ER) | payer MEDICARE, OTHER ==
--- NOTE | 2019-09-15 09:35 | EDM.PDOC ---
ED HPI GENERAL MEDICAL PROBLEM - General Chief Complaint: Upper Extremity Injury/Pain Stated Complaint: WRIST SWOLLEN FROM FALL Time Seen by Provider: 09/15/19 09:06 Source of Information: Reports: Patient, Old Records History Limitations: Reports: Other (Dementia) - History of Present Illness INITIAL COMMENTS - FREE TEXT/NARRATIVE: 88-year-old female with a past medical history of CAD, hypertension, asthma, Alzheimer's dementia GERD, presenting from a nursing facility with a wrist injury. Presents by the [facility] bus from [facility]. She is accompanied by staff from the [facility]. History is severely limited due to dementia. She reportedly fell yesterday but this was not witnessed by staff. Unclear how long she was on the ground. Today staff noticed swelling to the left wrist so they brought her to the ED to be evaluated. Here she complains of left wrist pain but also substernal chest pain, which is more of tenderness. She cannot tell me the circumstances behind her fall yesterday. At present she denies any chest discomfort or shortness of breath. History is otherwise limited due to severe dementia. left wrist Pain Score (Numeric/FACES): 4 - Related Data Allergies Allergy/AdvReac Type Severity Reaction Status Date / Time No Known Allergies Allergy Verified 05/07/19 08:02 Home Meds: Home Meds Acetaminophen [Tylenol Extra Strength] 500 mg PO TID 05/14/18 [History] Acetaminophen/HYDROcodone [[place] 325-5 MG] 1 tab PO Q6H PRN 05/14/18 [History] Bisacodyl 10 mg RC DAILY PRN 05/14/18 [History] Calcium Carbonate/Vitamin D3 [Calcium 500-Vit D3 200 Caplet] 1 tab PO BID 05/14/18 [History] Cholecalciferol (Vitamin D3) [Vitamin D3] 2,000 unit PO DAILY 05/14/18 [History] Docusate Sodium [Colace] 200 mg PO DAILY 05/14/18 [History] Loperamide HCl [Imodium A-D] 2 mg PO ASDIRECTED PRN 05/14/18 [History] Magnesium Hydroxide [Milk of Magnesia] 15 ml PO DAILY PRN 05/14/18 [History] Memantine [Namenda] 10 mg PO BID 05/14/18 [History] Multivitamin [Daily Multiple Vitamin] 1 each PO DAILY 05/14/18 [History] Omeprazole 20 mg PO DAILY 05/14/18 [History] guaiFENesin/Dextromethorphan [Tussin DM Clear] 10 ml PO Q4H PRN 05/14/18 [History] polyethylene glycoL 3350 [MiraLAX] 17 gm PO DAILY PRN 05/14/18 [History] Alendronate Sodium [Fosamax] 70 mg PO TU 10/09/18 [History] Past Medical History HEENT History: Reports: Allergic Rhinitis Cardiovascular History: Reports: CAD, High Cholesterol, Hypertension 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: Reports: Asthma Gastrointestinal History: Reports: GERD Genitourinary History: Reports: Urinary Incontinence [employer] History: Reports: Musculoskeletal History: Reports: Other (See Below) Other Musculoskeletal History: hx of neck and back fx's Neurological History: Reports: Alzheimers Disease Psychiatric History: Reports: Dementia Immunologic History: Reports: None - Infectious Disease History Infectious Disease History: Reports: None - Past Surgical History HEENT Surgical History: Reports: Adenoidectomy, Tonsillectomy Social & Family History - Family History Family Medical History: Noncontributory - Caffeine Use Caffeine Use: Reports: Coffee Review of Systems - Review of Systems Review Of Systems: Unable To Obtain Reason Not Obtained: Due to severe dementia Respiratory: Denies: Shortness of Breath Cardiovascular: Reports: Chest Pain Musculoskeletal: Reports: Arm Pain. Denies: Back Pain ED EXAM, GENERAL - Physical Exam Exam: See Below Free Text/Narrative:: Vital signs reviewed. Nursing notes reviewed. Constitutional: Awake, alert, non-distressed. Head: Normocephalic, atraumatic. Eyes: EOMI, conjunctiva normal, no discharge, no scleral icterus. Ears, Nose, Throat: External ears and nose normal, moist oral mucosa. TMs and EACs clear bilaterally Cardiovascular: 2+ left radial pulse, capillary refill less than 2 seconds. Chest: tenderness to the sternum without deformity, contusion, wounds, or any overlying skin changes. No paradoxical chest wall movement Pulmonary: normal work of breathing, no accessory muscle use. Abdomen/GI: Soft, nontender, nondistended, no guarding or rigidity, no masses. Musculoskeletal: Swelling to the left wrist. No tenderness to the spine or the rest of the back. Integumentary: Appropriate color for ethnicity, warm, dry, no pallor or jaundice, no rash. Neurologic: Alert, oriented to person only, not to place/time/event, repetitive questioning, normal speech, no facial droop, moving all extremities well. Able to move all fingers of the left hand ED TRAUMA EXTREMITY PROCEDURES - Splinting Left Upper Extremity Pre-Procedure NV Status: Normal Post-Procedure NV Status: Normal Splint Material: Fiberglass Splint Design: Sugar Tong Applied & Form Fitted By: Nurse Provider Post-Splint Application NV Check: NV Status Normal Complications: No Progress/Comments: Ortho-glass and LOGAN bandages, placed in sling afterward. EKG INTERPRETATION EKG Interpretation Comments: 12-Lead ECG Interpretation Acquired: 1025 AM Rhythm: Sinus rhythm Rate: 73 BPM [place]: Normal Intervals: Normal Ectopy: None RV Strain: No obvious RV strain pattern. Interpretation: Compared to 05/07/19, new TWI in V2 Course - Vital Signs Text/Narrative:: 88-year-old female with complaints of injury after an unwitnessed fall. Patient [hemodynamically stable, afebrile], well-appearing, looks nontoxic. Differential diagnosis includes but is not limited to: Intracranial hemorrhage, skull fracture, spinal injury, rib fracture, sternal fracture, pneumothorax, blunt cardiac injury, syncope, anemia, arrhythmia, wrist fracture, wrist dislocation, intra-abdominal injury, soft tissue trauma, etc. CT head shows old lacunar infarcts in the right basal ganglia but no acute changes. CT cervical spine showed old injury at C1-C2, compression deformities at T2, T3, and T4 which are likely old given that she has no pain over her thoracic spine. No other acute findings. Left wrist x-rays were concerning for impacted fracture of the distal radius. Chest x-rays show no acute findings. Pelvis x-ray show no acute findings. Twelve-lead EKG was concerning with new T wave inversions in lead V2. CBC, electrolytes, creatinine reassuring. Negative troponin. Normal hepatic funct ion testing. Plan: Patient is stable to discharge back to nursing facility with outpatient orthopaedic surgery follow-up. Strict emergency department return precautions were provided, patient indicated understanding. All questions were answered prior to departure. Discharged in good condition. Last Recorded V/S: Last Vital Signs Temp 36.1 C 09/15/19 09:30 Pulse 86 09/15/19 09:30 Resp 16 09/15/19 09:30 BP 144/69 H 09/15/19 09:30 Pulse Ox 86 L 09/15/19 09:30 - Orders/Labs/Meds Orders: Active Orders 24 hr Category Date Time Status Cardiac Monitoring [RC] . DIRECTED Care 09/15/19 09:46 Active EKG 12 Lead [EKG Documentation Completion] [RC] STAT Care 09/15/19 09:45 Active Pulse Oximetry [RC] ASDIRECTED Care 09/15/19 09:45 Active Splinting [RC] ASDIRECTED Care 09/15/19 10:59 Active Labs: Laboratory Tests 09/15/19 09/15/19 Range/Units 11:07 11:07 WBC 7.05 (4.0-11.0) K/uL RBC 4.31 (4.30-5.90) M/uL Hgb 12.8 (12.0-16.0) g/dL Hct 39.8 (36.0-46.0) % MCV 92.3 (80.0-98.0) fL MCH 29.7 (27.0-32.0) pg MCHC 32.2 (31.0-37.0) g/dL RDW Std Deviation 47.1 (28.0-62.0) fl RDW Coeff of Mode 14 (11.0-15.0) % Plt Count 239 (150-400) K/uL MPV 8.60 (7.40-12.00) fL Neut % (Auto) 77.8 (48.0-80.0) % Lymph % (Auto) 11.6 L (16.0-40.0) % [place] % (Auto) 9.6 (0.0-15.0) % Eos % (Auto) 0.6 (0.0-7.0) % Baso % (Auto) 0.4 (0.0-1.5) % Neut # (Auto) 5.5 (1.4-5.7) K/uL Lymph # (Auto) 0.8 (0.6-2.4) K/uL [place] # (Auto) 0.7 (0.0-0.8) K/uL Eos # (Auto) 0.0 (0.0-0.7) K/uL Baso # (Auto) 0.0 (0.0-0.1) K/uL Nucleated RBC % 0.0 /100WBC Nucleated RBCs # 0 K/uL Sodium 136 (136-145) mmol/L Potassium 3.8 (3.5-5.1) mmol/L Chloride 99 (98-107) mmol/L Carbon Dioxide 27.6 (21.0-32.0) mmol/L BUN 15 (7.0-18.0) mg/dL Creatinine 0.8 (0.6-1.0) mg/dL Est Cr Clr Drug Dosing 34.24 mL/min Estimated GFR (MDRD) > 60.0 ml/min Glucose 107 H (74-106) mg/dL Calcium 8.9 (8.5-10.1) mg/dL Total Bilirubin 0.6 (0.2-1.0) mg/dL AST 23 (15-37) IU/L ALT 20 (14-63) IU/L Alkaline Phosphatase 68 (46-116) U/L Troponin I < 0.050 (0.000-0.056) ng/mL Total Protein 7.0 (6.4-8.2) g/dL Albumin 3.8 (3.4-5.0) g/dL Globulin 3.2 (2.6-4.0) g/dL Albumin/Globulin Ratio 1.2 (0.9-1.6) Departure - Departure Time of Disposition: 12:02 Disposition: Home, Self-Care 01 Condition: Good Clinical Impression: Tenderness of chest wall Accidental fall Qualifiers: Encounter type: initial encounter Qualified Code(s): W19.XXXA - Unspecified fall, initial encounter Fracture of left distal radius Qualifiers: Encounter type: initial encounter Fracture type: closed Fracture morphology: unspecified fracture morphology Qualified Code(s): S52.502A - Unspecified fracture of the lower end of left radius, initial encounter for closed fracture - Discharge Information *PRESCRIPTION DRUG MONITORING PROGRAM REVIEWED*: No *COPY OF PRESCRIPTION DRUG MONITORING REPORT IN PATIENT TRAM: No Instructions: Nonspecific Chest Pain, Adult, [id number], Wrist Fracture Treated With Immobilization, [id number], Fall Prevention in Hospitals, Adult, Chest Wall Pain Referrals: [facility] - Orthopaedics [Provider Group] - 1 Week (Follow-up of nondisplaced left distal radius fracture.) Forms: ED Department Discharge Additional Instructions: Thank you for choosing the [facility] emergency department in [place] for your medical needs today. It was a pleasure caring for you. You were seen in the emergency department for evaluation after a fall. CT scans and lab studies and EKG are reassuring. X-rays of the wrist demonstrated a nondisplaced left distal radius fracture. Patient was placed in a splint and a sling. She needs to follow-up with her orthopedic surgery clinic in 1 to 2 weeks for reevaluation. Please return the emergency department immediately if your symptoms worsen or if you feel worse. The following information is given to patients seen in the emergency department who are being discharged. This information is to outline your options for follow-up care. We provide all patients seen in our emergency department with a follow-up referral. The need for follow-up, as well as the timing and circumstances, are variable depending upon the specifics of your emergency department visit. If you don't have a primary care physician on staff, we will provide you with a referral. We always advise you to contact your personal physician following an emergency department visit to inform them of the circumstance of the visit and for follow-up with them and/or the need for any referrals to a consulting specialist. The emergency department will also refer you to a specialist when appropriate. This referral assures that you have the opportunity for follow-up care with a specialist. All of these measure are taken in an effort to provide you with optimal care, which includes your follow-up. Under all circumstances we always encourage you to contact your private physician who remains a resource for coordinating your care. When calling for follow-up care, please make the office aware that this follow-up is from your recent emergency room visit. If for any reason you are refused follow-up, please contact the [facility] Emergency Department at and asked to speak to the emergency department charge nurse. If you do not have a primary care physician that is caring for you, you can contact these clinics below to set up an appointment to establish care: Curtis Mariscal [facility] - Primary [facility] [address] [place] [id number] [facility] [address] [place] [id number] Sepsis Event Note (ED) - Focused Exam Vital Signs: Vital Signs Temp Pulse Resp BP Pulse Ox 09/15/19 09:30 36.1 C 86 16 144/69 H 86 L - My Orders Last 24 Hours: My Active Orders 09/15/19 09:45 EKG 12 Lead [EKG Documentation Completion] [RC] STAT Pulse Oximetry [RC] ASDIRECTED 09/15/19 09:46 Cardiac Monitoring [RC] . DIRECTED 09/15/19 10:59 Splinting [RC] ASDIRECTED - Assessment/Plan Last 24 Hours: My Active Orders 09/15/19 09:45 EKG 12 Lead [EKG Documentation Completion] [RC] STAT Pulse Oximetry [RC] ASDIRECTED 09/15/19 09:46 Cardiac Monitoring [RC] . DIRECTED 09/15/19 10:59 Splinting [RC] ASDIRECTED
--- NOTE | 2019-09-15 10:39 | CR ---
Pelvis: AP view of the pelvis was obtained. Comparison: No prior pelvis study is available. Orthopedic hardware is noted within the right hip affixing an old healed fracture. Joint spaces within both hips are preserved. Bony structures are osteopenic. No discrete fracture or other abnormality is appreciated. Impression: 1. Findings as described above. 2. Nothing acute is appreciated on AP pelvis study. Diagnostic code #2 Study was dictated in MDT
--- NOTE | 2019-09-15 10:41 | CR ---
Chest: Portable view of the chest was obtained. Comparison: Prior chest x-ray of 05/07/19. Heart size appears within normal limits for AP technique. Tortuous thoracic aorta is seen. Lung markings are increased which appear to be chronic. No acute parenchymal change is appreciated. Degenerative change is noted within the right shoulder. Mild scoliosis noted within the spine. Bony structures are osteopenic. Impression: 1. Multiple findings which appear to be chronic. 2. Nothing acute is appreciated. Diagnostic code #2 Study was dictated in MDT
--- NOTE | 2019-09-15 10:42 | CR ---
Addendum: Study was reviewed. Very minimal cortical irregularity is noted within the distal metaphysis of the radius. Very minimal sclerosis is noted within the metaphysis in a transverse orientation through the distal radius. Uncertain if this is old or represents an acute fracture. No convincing fracture is noted within the distal ulna. Lucent line is seen within the distal ulna which most likely represents focal osteopenia. Consider splinting of the patient and follow-up study in 10-14 days which would rule in or rule out fracture. --- Addendum1 above dictated on [09/15/2019 10:01] by [Charly Rodriguez, Adan Quijano] --- --- Addendum1 above signed on [09/15/2019 10:03] by [Charly Rodriguez, Adan Quijano] --- --- Original report below dictated on [09/15/2019 09:37] by [Charly Rodriguez, Adan Quijano] --- --- Original report below signed on [09/15/2019 09:38] by [Charly Rodriguez, Adan Quijano] --- Left wrist: 3 views of the left wrist were obtained. Comparison: No prior wrist exam is available. Joint space narrowing is noted off the distal navicular bone. Mild degenerative change is seen at the CMC joint of the thumb. Osteopenia is present. No acute fracture or other bony abnormality is seen. Impression: 1. Mild degenerative change and osteopenia. 2. Nothing acute is appreciated on 3 view left wrist exam. Diagnostic code #2 Study was dictated in MDT --- Addendum1 signed ---
--- NOTE | 2019-09-15 10:48 | CT ---
Head CT Technique: Multiple axial sections through the brain were obtained. Intravenous contrast was not utilized. Comparison: Prior head CT study of 05/14/18 is available. Findings: Ventricles along with basal cisterns and sulci over the convexities are moderately to markedly prominent. Diminished density is noted within a periventricular and subcortical location most likely representing small vessel ischemic demyelination change. Old lacunar infarcts are noted within the right basal ganglia. No evidence of intracranial hemorrhage. No midline shift or mass effect is seen. Possible retention cyst within the inferior left maxillary sinus which appears chronic. No acute calvarial finding is seen. Nothing acute is seen within the mastoid sinuses. Impression: 1. Senescent change as noted above. 2. Minimal sinus finding believed to be chronic. 3. No acute intracranial abnormality is seen. Diagnostic code #2 Study was dictated in MDT
--- NOTE | 2019-09-15 10:48 | CT ---
CT cervical spine Technique: Multiple axial sections were obtained from above C1 inferiorly to the bottom of T6. Reconstructed sagittal and coronal images were obtained. 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 This appears as a chronic finding as the margins are sclerotic. Uncertain if this is a developmental anomaly or represents previous fracture. There is fusion either developmental or postsurgical between C1 and the C2 dens. Severe disc space narrowing at C3-C4 with mild spondylolisthesis due to degenerative apophyseal change. Severe disc space narrowing is noted at C4-C5, C5-C6 and C6-C7. Posterior osteophytes are seen most prominent at C5-C6. Moderate compression deformity is noted at T2 which is felt to be old. Severe compression deformities are noted of T3 and T4 which are most likely old. Bony structures are diffusely osteopenic. Scoliosis is present. No definite acute fracture is appreciated. Impression: 1. Evidence of old injury at C1-C2 versus developmental anomaly as described above. 2. Compression deformities within T2, T3 and T4 which are most likely old. 3. Other degenerative change and osteopenia. 4. Nothing acute is definitely appreciated. Diagnostic code #3 Study was dictated in MDT
[2019-09-15 11:40] LABS: BLOOD UREA NITROGEN,BUN 15 mg/dL (7.0-18.0); CARBON DIOXIDE,CO2 27.6 mmol/L (21.0-32.0); CHLORIDE,CL 99 mmol/L (98-107); GLUCOSE RANDOM 107 mg/dL (74-106); POTASSIUM,K 3.8 mmol/L (3.5-5.1); SODIUM,NA 136 mmol/L (136-145)
[2019-09-15 14:07] VITALS: BP 148/74; PULSE 77
== END 2019-09-15 12:28 | disposition home or self-care (01) ==
LOC: MW.ED 09:03
DX: S52.502A Unspecified fracture of the lower end of left radius, initial encounter for closed fracture (principal); R07.89 Other chest pain; I10 Essential (primary) hypertension; I25.10 Atherosclerotic heart disease of native coronary artery without angina pectoris; K21.9 Gastro-esophageal reflux disease without esophagitis; Z79.899 Other long term (current) drug therapy; W19.XXXA Unspecified fall, initial encounter
CPT/HCPCS: 29125; 36415; 70450; 70450-26; 71045; 71045-26; 72125; 72125-26; 72170; 72170-26; 73110-26-LT; 73110-LT; 80053; 84484; 85025; 93005; 99284; 99285-25